=== PATIENT | male | born 1985 | race Caucasian/White ===

== ENCOUNTER 2016-04-03 15:32 | Observation (INO) ==
--- NOTE | 2016-04-03 16:06 | EKG Report ---
Stationary ECG Study [facility] ER Test Date: 04/03/2016 3:51:55 PM Pat Name: ELMER PATRICIA Department: Room: Gender: M Mate Relief: Luh : 1985 Requested by: Michelle Terrell Order Number: [id number] Reading MD: BG HERRERA Intervals [place] Rate: 101 P: 46 IN: 129 QRS: 71 QRSD: 90 T: 69 QT: 329 QTc: 387 Interpretive Statements SINUS TACHYCARDIA ABNORMAL RHYTHM ECG Electronically Signed On 04-03-16 23:12:51 MANAGER FLEET by BG HERRERA [email or web address]
[2016-04-03] MEDS ORDERED: NITROGLYCERIN SL 0.4 MG TABLET SL PRN (18:20)
[2016-04-03] MEDS ORDERED: ASPIRIN 325 MG TABLET PO STA (18:20)
[2016-04-03] MEDS ORDERED: ONDANSETRON 4 MG/2 ML VIAL IV STA (18:20)
[2016-04-03] MEDS ORDERED: SODIUM CHLORIDE 0.9% 1,000 ML IV STA (18:20)
[2016-04-03] MEDS ORDERED: MORPHINE 2 MG/1 ML SYRINGE IV STA (18:20)
[2016-04-03] MEDS ORDERED: ONDANSETRON 4 MG/2 ML VIAL ONE (18:26)
[2016-04-03] MEDS ORDERED: MORPHINE 2 MG/1 ML SYRINGE ONE (18:26)
[2016-04-03] MEDS ORDERED: ASPIRIN 325 MG TABLET ONE (18:26)
[2016-04-03 18:27] LABS: Basophils # 0.1 10*3/uL (0.0-0.2); Basophils % 0.7 % (0.0-0.8); Eosinophils # 0.6 10*3/uL (0.0-0.87); Eosinophils % 4.2 % (0.00-10.9); Hematocrit 43.2 VOL% (42.0-52.0); Hemoglobin 14.5 GM/DL (14.0-18.0); Immature Granulocytes % 0.4 %; Immature Granulocytes Absolute 0.06 #; Lymphocytes # 4.9 10*3/uL (1.4-4.0); Lymphocytes % 34.8 % (21.2-54.2); Mean Corpuscular HGB Conc 33.6 GM/DL (32-36); Mean Corpuscular Hemoglobin 31 PG (27-34); Mean Corpuscular Volume 91.1 FL (87-102); Mean Platelet Volume 9.1 FL (9.6-12.0); Monocytes % 7.1 % (1.7-12.7); Neutrophils # 7.4 10*3/uL (1.4-7.4); Neutrophils % 52.8 % (38.7-73.9); Platelet Count 260 T/CUMM (130-400); Red Blood Count 4.74 MC/CUMM (3.8-5.5); Red Cell Distribution Width 12.6 % (9.3-17.3)
--- NOTE | 2016-04-03 18:27 | Emergency Department Note ---
Arrival - Arrival Chief Complaint: Chest Pain Stated Complaint: Chest pains ED Nursing Triage Note: Pt states that he is having midsternal chest pain onset x 2 days - pt states that he was seen and treated in ER for same c/o yesterday and pt states that he refused admit - pt states that he has 6 stents - stents were sep 2014 -pt states that he sees Dr Ramirez Mode of Arrival: Ambulatory Limitations: No Limitations Source: Patient Time Seen by Provider: 04/03/16 17:49 - History of Present Illness HPI Narrative: The patient complains of constant chest tightness with intermittent brief episodes of sharp chest pain for the past 2 days. He has had some brief episodes of sharp pain in his left axilla but otherwise no radiation. He has had some nausea but no vomiting. He has had diaphoresis and shortness of breath. He notes no exacerbating or relieving factors. He states the pain feels similar to pain he had just before his VT in 2014. He has had a recent toothache but no fever, chills, cough, rhinorrhea or other recent illness. He has a history of hypertension and VT with 6 stents done in 2014. He has not been taking any of his medications. He cannot cath done in 2015 which showed only a 30% proximal circumflex stenosis. Everything else was widely patent. Ejection fraction was 40-45%. The patient was seen here yesterday and admitted by Dr. Dowd, however, he quickly left AMA. Allergies/Adverse Reactions: Allergies Allergy/AdvReac Type Severity Reaction Status Date / Time No Known Allergies Allergy Verified 06/09/15 11:07 Home Medications: Home Medications Medication Instructions Recorded Confirmed Type Acetaminophen Tab [Tylenol Tab] 325 mg PO Q4H PRN #60 tablet 04/02/16 04/03/16 Rx Alum/Mag/Simeth Max Str Liquid 30 ml PO Q4H PRN #1 bottle 04/02/16 04/03/16 Rx [Mylanta Max Strength Liquid] Aspirin EC Tab 81 mg PO DAILY #30 tablet 04/02/16 04/03/16 Rx Atorvastatin [Lipitor] 40 mg PO DAILY #30 tablet 04/02/16 04/03/16 Rx Carvedilol [Coreg] 6.25 mg PO BID W/MEALS #60 tablet 04/02/16 04/03/16 Rx Lisinopril [Prinivil] 5 mg PO DAILY #30 tablet 04/02/16 04/03/16 Rx Nitroglycerin Sl Tab [Nitrostat] 0.4 mg SL Q5M PRN #60 tablet 04/02/16 04/03/16 Rx Pantoprazole Tab [Protonix Tab] 40 mg PO DAILY #30 tablet 04/02/16 04/03/16 Rx Ticagrelor [Brilinta] 90 mg PO BID #60 tablet 04/02/16 04/03/16 Rx Review of System - Review of System 12 point system: reviewed and no additional remarkable complaints except as stated - Review of System Constitutional: Present: diaphoresis. Absent: chills, fever Head/Ears/Nose/Throat: Absent: nasal drainage, sore throat Respiratory: Absent: cough, respiratory distress, wheezing Cardiovascular: Present: chest pain. Absent: palpitations, dyspnea on exertion Gastrointestinal: Present: nausea. Absent: abdominal pain, vomiting Musculoskeletal: Absent: back pain, neck pain Medical,Surgical,& Family Hx - Medical History Cardio: History of: Cardiac Dysrhythmia (runs of VTACT this admission), CAD, Hypertension, [place] No history of: Aneurysm, Cerebrovascular Disease, Congenital Heart Disease, CHF, Pacemaker, PVD, Valvular Heart Disease, Cardiovascular Problems Psychological: No history of: Anxiety Disorders, ADHD, Behavior Problems, Bipolar Disorder, Depression, Previous Suicide Attempt, Psychiatric/Substance Abuse Tx, Schizophrenia, Violent Behavior, Psychiatric Problems Neurology: No history of: Brain Aneurysm, Cerebral Hemorrhage, Cerebrovascular Accident , Cerebral Palsy, Dementia, Migraine, Multiple Sclerosis, Parkinson's Disease, Peripheral Neuropathy, Seizures, TIA, Vertigo, Neurologocal Cancer HEENT: History of: HEENT Problems (tubes placed in ears as a child) No history of: Ear Problem, Eye Problem, Dental Problems, Glaucoma, Oral Cancer Endocrine: No history of: Adrenal Disease, Diabetes Mellitus (IDDM), Diabetes Mellitus ( NIDDM), Dyslipidemia, Thyroid Disorder, Endocrine Cancer, Endocrine Problems Rheumatology: No history of;: Fibromyalgia, Gout, Myasthenia Gravis, Psoriasis, Rheumatoid Arthritis, Sjogrens, Systemic Lupus Erythematosus, Rheumatological Problems Respiratory: History of: Obstructive Sleep Apnea, Respiratory Problems No history of: Asthma, Bronchitis, COPD, Intubation, Pulmonary Embolism, Pulmonary Hypertension, Pneumonia, Lung Cancer Renal: History of: Renal Problems (Congenital kidney disease (only has one kidney)) No history of: Renal (Kidney) Cancer, Dialysis, Renal Failure Genitourinary: No history of: Bladder Problem, Kidney Stones, Prostate Problems, Recurring Urinary Tract Infections, Genitourinary Cancer, Problems Gastrointestinal: History of: GERD No history of: Bowel Obstruction, Clostridium Difficile, Crohn's Disease, Diverticulitis/ Diverticulosis, Esophageal Varices, Gastrointestinal Bleed, Hemorrhoids, Hematochezia, Hepatitis, Liver Problems, Pancreatitis, Polyps, Ulcerative Colitis, Gastrointestinal Cancer, GI Problems Musculoskeletal: No history of: Amputation, Back/Neck Problems, Degenerative Disk Disease, Herniated Disk, Osteoporosis, Musculoskeletal Cancer, Musculoskeletal Problems Hematology: History of: Bleeding Problems (HEMATOMA POST CATH 09/19) No history of: Anemia, Blood Transfusion Reaction, Clotting Problems, Sickle Cell Disease, Hematologic Cancer, Blood Disorders Reproductive: No histroy: Penile Disorder, Sexually Transmitted Disease, Reproductive Cancer, Reproductive Problems Other: No history of: Anesthesia Reactions, Anaphylaxis, Cancer, Eczema, HIV, Malignant Hyperthermia, MRSA, Vancomycin-Resistant Enterococci, Skin Problems, Miscellaneous Medical Problems - Surgical History Cardiac Surgeries: Sugical HX of: Cardiac Catheterization ([address] RAMIREZ ON 09/10/14) Patient Denies: Femoral-Popliteal Bypass Graft, Cardiac Surgery, Carotid Endarterectomy, Internal Defibrillator, Vascular Access Devices Thoracic Surgeries: Patient denies;: Kidney (Renal Surgery), Lithotripsy, Nephrectomy, Organ Transplant, Lobectomy Neurologic Surgeries: Patient denies: Brain Aneurysm, Cerebral Hemorrhage, Neurologic Surgery HEENT Surgeries: Patient denies: Carotid Endarterectomy, Eye Surgery, Thyroid Surgery, Tonsilectomy & Adenoidectomy Abdominal Surgeries: Surgical HX of: Hernia Repair (as a child) Patient denies: Abdominal Surgery, Appendectomy, Cholecystectomy, Colonoscopy , Gastric Bypass Surgery, EGD, Splenectomy Reproductive Surgeries: Patient denies;: Breast Surgery, Cystoscopy, Genitourinary Surgery, Prostate Surgery, Vasectomy Orthopedic Surgeries: Patient denies;: Implanted Devices, Orthopedic Surgery, Spinal Surgery, Total Hip Replacement, Total Knee Replacement - Family History Family History: Reports;: Family Cancer (grandfather and great grandfather), Family Diabetes (Dad), Family Heart Disease (grandmother-CHF grandfather heart transplant and CHF), Family Hypertension (dad), Family Stroke (dad -TIA) Denies;: Family Anesthesia Reaction - Social History Smoking Status: Smoker, status unknown Frequency of Alcohol Use: None Type of Drug Use: None Exam Physical Examination: GENERAL: Alert. No acute distress. HEENT: Normocephalic and atraumatic. There is no nasal drainage. No pharyngeal erythema or exudate. NECK: Normal inspection. Supple. No lymphadenopathy or meningismus. LUNGS: No respiratory distress. Clear to auscultation bilaterally, no wheezes, rales or rhonchi. HEART: Regular rate and rhythm. ABDOMEN: Soft, nontender and nondistended with normoactive bowel sounds. BACK: Normal inspection. SKIN: Color normal. Warm and dry. EXTREMITIES: Nontender. Normal range of motion. No pedal edema. NEUROLOGICAL/PSYCHIATRIC: Alert and oriented 3 with normal mood and affect. Cranial nerves normal. No motor or sensory deficit. Vital Signs: Vital Signs Temperature 99.6 F 04/03/16 16:47 Pulse Rate 100 H 04/03/16 16:47 Respiratory Rate 20 04/03/16 16:47 Blood Pressure 144/92 04/03/16 16:47 O2 Sat by Pulse Oximetry 97 04/03/16 16:47 Course - Reevaluation(s) Reevaluation #1: Patient reports very little pain relief with nitroglycerin, morphine and aspirin. I have discussed the patient with Dr. Osuna and will admit tonight. He has now had 2 sets of enzymes which were negative. EKG shows no changes. Chest x-ray is unremarkable. Time: 20:02 Results - Labs CBC & BMP: 04/03/16 18:15 04/03/16 18:15 Lab Results: I have reviewed the patients labs Labs: Laboratory Tests 04/02/16 04/03/16 04/03/16 12:53 18:15 18:15 INR 0.9 Magnesium 2.0 Troponin I < 0.015 04/03/16 18:15 INR Magnesium Troponin I < 0.015 - EKG EKG results: interpreted by ERMD - Impressions EKG shows a sinus rhythm with Q waves in II, III, and F. No acute changes. Chest x-ray shows no acute cardiopulmonary abnormality. Disposition Clinical Impression: Chest pain Case discussed with: patient, patient's family Disposition: Still a Patient Time of Disposition: 20:06
[2016-04-03 18:39] LABS: INR 0.9; PT Patient Result 9.5 SECS; Partial Thromboplastin Time 25.4 SECS (0-40)
[2016-04-03 18:56] LABS: Alanine Aminotransferase 50 U/L (16-61); Albumin 3.3 G/DL (3.4-5.0); Alkaline Phosphatase 74 U/L (45-117); Aspartate Amino Transferase 29 U/L (0-37); Bilirubin,Total < 0.39 MG/DL (0.2-1.0); Calcium 8.8 MG/DL (8.5-10.1); Total Protein 6.3 G/DL (6.4-8.3)
[2016-04-03 18:57] LABS: Blood Urea Nitrogen 14 MG/DL (7-18); Glucose 103 MG/DL (74-106); Potassium 4.3 MMOL/L (3.5-5.1); Sodium 143 MMOL/L (136-145)
--- NOTE | 2016-04-03 19:04 | XRay Report ---
Referring Physician: Brando Perez Exam: XR chest 1V portable Date: April 03, 2016 at 6:19 PM Reason: Chest pain Comparison: Chest one view portable April 02, 2016 Findings: The cardiac silhouette is normal in size for the portable technique. No focal consolidation, pneumothorax or pleural effusion is identified. No acute osseous process is seen. Impression: No acute cardiopulmonary process is identified. PROCEDURE INTERPRETED AT [facility] DEPARTMENT OF RADIOLOGY Final Report Signed by: Dr. Jhonatan Guevara
--- NOTE | 2016-04-03 22:09 | EKG Report ---
Stationary ECG Study [facility] ER Test Date: 04/03/2016 10:07:30 PM Pat Name: ELMER PATRICIA Department: Room: Gender: M Structural Fitter: BLAIRE Duncan : 1985 Requested by: Brando Brannon Order Number: [id number] Hortencia MD: BG EHRRERA Intervals [place] Rate: 81 P: 63 LA: 132 QRS: 78 QRSD: 95 T: 82 QT: 370 QTc: 407 Interpretive Statements SINUS RHYTHM MINOR NON-SPECIFIC ST-T ABNORMALITIES Electronically Signed On 04-03-16 23:14:05 DOCTOR OF NATUROPATHIC MEDICINE by BG HERRERA [id number]
[2016-04-03] MEDS ORDERED: ALUMINUM/MAGNES/SIMETH MAX STR 30 ML UDCUP PO PRN (22:26)
[2016-04-03] MEDS ORDERED: MAGNESIUM SULF RIDER 2 GM in PREMIX 1 EACH IV PRN (22:26)
[2016-04-03] MEDS ORDERED: NITROGLYCERIN 2% OINT 1 INCH/GM PACK TOP STA (22:26)
[2016-04-03] MEDS ORDERED: MAGNESIUM SULF RIDER 4 GM in PREMIX 1 EACH IV PRN (22:26)
[2016-04-03] MEDS ORDERED: NITROGLYCERIN 2% OINT 1 INCH/GM PACK TOP ONE (22:29)
[2016-04-03] MEDS: TICAGRELOR 90 MG TABLET PO SCH (22:33)
--- NOTE | 2016-04-04 07:44 | EKG Report ---
Stationary ECG Study [facility] ER Test Date: 04/04/2016 1:00:44 AM Pat Name: ELMER PATRICIA Department: Room: Gender: M Drum Tester: ALLAN : 1985 Requested by: Brando Brannon Order Number: [id number] Reading MD: ANTELMO YAN Intervals [place] Rate: 82 P: 34 RI: 153 QRS: 67 QRSD: 88 T: 72 QT: 361 QTc: 400 Interpretive Statements SINUS RHYTHM Electronically Signed On 04-04-16 12:58:08 BUSINESS PROCESS MODELER by ANTELMO YAN [id number]
[2016-04-04] MEDS: CARVEDILOL 6.25 MG TABLET PO SCH ×2 (08:24→17:18)
[2016-04-04] MEDS ORDERED: PANTOPRAZOLE 40 MG TABLET PO SCH (09:00)
[2016-04-04] MEDS: TICAGRELOR 90 MG TABLET PO SCH (09:36)
[2016-04-04] MEDS: ATORVASTATIN 40 MG TABLET PO SCH (09:36)
[2016-04-04] MEDS: LISINOPRIL 5 MG TABLET PO SCH (09:36)
[2016-04-04] MEDS: ASPIRIN EC 81 MG TABLET PO SCH (09:36)
[2016-04-04] MEDS: PANTOPRAZOLE 40 MG TABLET PO SCH (09:37)
[2016-04-04] MEDS ORDERED: MAGNESIUM SULF RIDER 2 GM in PREMIX 1 EACH IV PRN (15:26)
[2016-04-04] MEDS ORDERED: diphenhydrAMINE CAP 25 MG CAPSULE PO ONE (15:26)
[2016-04-04] MEDS ORDERED: DIAZEPAM 5 MG TABLET PO ONE (15:26)
[2016-04-04] MEDS ORDERED: POTASSIUM CHLORIDE RIDER 10 MEQ in PREMIX 1 EACH IV PRN (15:26)
[2016-04-04] MEDS ORDERED: NITROGLYCERIN SL 0.4 MG TABLET SL PRN (15:33)
[2016-04-04] MEDS: MORPHINE 2 MG/1 ML SYRINGE IV PRN (15:51)
[2016-04-04] MEDS ORDERED: ENOXAPARIN 60 MG/0.6 ML SYRINGE SUBCUT ONE (15:58)
--- NOTE | 2016-04-04 16:00 | Cardiology History & Physical ---
I, Valorie Lopez RN, am scribing for, and in the presence of, Harlan Osuna MD 16:00. Assessment and Plan (1) Chest pain Status: Acute Assessment and plan: This is concerning for possible worsening of underlying coronary artery disease. I have discussed risk and benefits of left heart catheterization with the patient. He agrees to proceed with this tomorrow morning. He does not have any known allergies. We will keep him n.p.o. after midnight. I have discussed in detail the particulars of this case and I have examined the patient and reviewed the patient's chart both current and old. I was directly involved in the patient's evaluation and management and I completely agree with Valorie Lopez regarding this patient's evaluation and treatment plan. Current Visit: Yes (2) Dyslipidemia Status: Chronic Assessment and plan: We will check lipid panel. Current Visit: Yes (3) CAD (coronary artery disease) Status: Chronic Assessment and plan: Patient is status post NSTEMI September 2014 with LAD stent x 6. Current Visit: No (4) Noncompliance Status: Acute Assessment and plan: Counseled patient on the importance of medication compliance. Current Visit: No (5) Hypertension Status: Chronic Assessment and plan: This is currently well controlled. Home medications have been restarted. Current Visit: No (6) Obesity Status: Chronic Assessment and plan: Counseled patient on the importance of weight loss. Current Visit: No (7) Obstructive sleep apnea Status: Chronic Assessment and plan: Continue current plan of care with CPAP machine. Current Visit: No (8) tobacco abuse Status: Chronic Assessment and plan: Counseled patient on the importance of smoking cessation. Current Visit: No History of Present Illness Chief complaint: Chest pain History of present illness: Mr. Wall is a 30 year old male with known coronary artery disease, routinely followed by Dr. Ramirez. Presented to the ER for further evaluation of chest pain. He has risk factors significant for known coronary artery disease, hypertension, dyslipidemia, obesity, current everyday smoker (one half a pack a day) and family history of premature heart disease. He has a history of LAD myocardial infarction, obstructive sleep apnea and ischemic cardiomyopathy ( with improved ejection fraction with no CHF symptoms). Patient has had 2 cardiac catheterizations. Patient is status post NSTEMI September 2014 with LAD stent x 6. He had recurrent chest pain June 2015 and underwent left heart cath. At that time his LAD stents were widely patent. The dominant circumflex and right coronary artery were also patent. Ejection fraction was noted to be 40-45 %. Patient was in his usual state of health until Sunday when he began to experience intermittent moderate chest pain. He describes his pain as heaviness that radiates to his left arm. This was also associated with shortness of breath, nausea, palpitations and lightheadedness. He tells me that his chest pain usually last approximately 30 seconds to 1 minute. He is unable to identify any alleviating factors. He does tell me that activity worsens his chest pain. He reports that this chest pain feels very similar to his angina prior to his myocardial infarction in September 2014. His chest pain increasingly got worse over the weekend and he presented to the ER on Sunday. He was going to be admitted under Dr. Dowd's service at that time. However, he did not want to be admitted and decided to leave A. Patient returned to the ER with recurrent chest pain Sunday. He has been admitted to cardiology's service and housed on the telemetry floor for close observation. Of note, patient reports a worsening dyspnea on exertion. He tells me that he has noticed this over the past several months while at work. He denies fever, chills, cough, abdominal pain, melena, orthopnea, PND and lower extremity edema. He also reports that he has been noncompliant with his medications and has not taken them in several months. Patient was seen and examined on telemetry. He is currently chest pain-free. His troponin has been negative 3 checks. His EKG does not reveal any acute findings and is unchanged from previous EKG. We will continue to monitor troponins and EKGs. Patient is currently in sinus rhythm with heart rates in the 70s without any overt arrhythmias or ectopy noted. Will monitor closely on telemetry. This is concerning for worsening the patient's underlying coronary artery disease. I have discussed risk and benefits of left heart catheterization with the patient. He agrees to proceed with this tomorrow morning. He does not have any known allergies. We will keep him n.p.o. after midnight. Home Medications Medication Instructions Recorded Confirmed Type Acetaminophen Tab [Tylenol Tab] 325 mg PO Q4H PRN #60 tablet 04/02/16 04/03/16 Rx Alum/Mag/Simeth Max Str Liquid 30 ml PO Q4H PRN #1 bottle 04/02/16 04/03/16 Rx [Mylanta Max Strength Liquid] Aspirin EC Tab 81 mg PO DAILY #30 tablet 04/02/16 04/04/16 Rx Atorvastatin [Lipitor] 40 mg PO DAILY #30 tablet 04/02/16 04/04/16 Rx Carvedilol [Coreg] 6.25 mg PO BID W/MEALS #60 tablet 04/02/16 04/04/16 Rx Lisinopril [Prinivil] 5 mg PO DAILY #30 tablet 04/02/16 04/04/16 Rx Nitroglycerin Sl Tab [Nitrostat] 0.4 mg SL Q5M PRN #60 tablet 04/02/16 04/04/16 Rx Pantoprazole Tab [Protonix Tab] 40 mg PO DAILY #30 tablet 04/02/16 04/04/16 Rx Ticagrelor [Brilinta] 90 mg PO BID #60 tablet 04/02/16 04/04/16 Rx Allergies Allergy/AdvReac Type Severity Reaction Status Date / Time No Known Allergies Allergy Verified 06/09/15 11:07 - Constitutional Constitutional: Absent: chills, excessive sweating, fatigue, fever(s), frequent falls, headache(s) - Cardiovascular Cardiovascular: Present: as per HPI, dyspnea, dyspnea on exertion, radiating jaw , neck or arm pain, lightheadedness, palpitations. Absent: claudication, diaphoresis, edema, orthopnea, PND - Respiratory Respiratory: Present: dyspnea, dyspnea on exertion. Absent: cough, hemoptysis, wheezing, snoring, pain on inspiration, change in phlegm color - Gastrointestinal Gastrointestinal: Present: nausea. Absent: abdominal pain, coffee ground emesis , diarrhea, heartburn, hematemesis, hematochezia, loose stools, melena, vomiting - Neurological Neurological: Absent: abnormal gait, abnormal speech, confusion, frequent falls , syncope - Hematologic/Lymphatic Hematologic/Lymphatic: Absent: easy bleeding, easy bruising, lymphadenopathy Medical,Surgical,& Family Hx - Medical History Cardio: History of: CAD, Hypertension, [place] No history of: Aneurysm, Cerebrovascular Disease, Congenital Heart Disease, CHF, Pacemaker, PVD, Valvular Heart Disease, Cardiovascular Problems Psychological: No history of: Anxiety Disorders, ADHD, Behavior Problems, Bipolar Disorder, Depression, Previous Suicide Attempt, Psychiatric/Substance Abuse Tx, Schizophrenia, Violent Behavior, Psychiatric Problems Neurology: No history of: Brain Aneurysm, Cerebral Hemorrhage, Cerebrovascular Accident , Cerebral Palsy, Dementia, Migraine, Multiple Sclerosis, Parkinson's Disease, Peripheral Neuropathy, Seizures, TIA, Vertigo, Neurologocal Cancer HEENT: History of: HEENT Problems (tubes placed in ears as a child) No history of: Ear Problem, Eye Problem, Dental Problems, Glaucoma, Oral Cancer Endocrine: No history of: Adrenal Disease, Diabetes Mellitus (IDDM), Diabetes Mellitus ( NIDDM), Dyslipidemia, Thyroid Disorder, Endocrine Cancer, Endocrine Problems Rheumatology: No history of;: Fibromyalgia, Gout, Myasthenia Gravis, Psoriasis, Rheumatoid Arthritis, Sjogrens, Systemic Lupus Erythematosus, Rheumatological Problems Respiratory: History of: Obstructive Sleep Apnea No history of: Asthma, Bronchitis, COPD, Intubation, Pulmonary Embolism, Pulmonary Hypertension, Pneumonia, Lung Cancer Renal: History of: Renal Problems (Congenital kidney disease (only has one kidney)) No history of: Renal (Kidney) Cancer, Dialysis, Renal Failure Genitourinary: No history of: Bladder Problem, Kidney Stones, Prostate Problems, Recurring Urinary Tract Infections, Genitourinary Cancer, Problems Gastrointestinal: History of: GERD No history of: Bowel Obstruction, Clostridium Difficile, Crohn's Disease, Diverticulitis/ Diverticulosis, Esophageal Varices, Gastrointestinal Bleed, Hemorrhoids, Hematochezia, Hepatitis, Liver Problems, Pancreatitis, Polyps, Ulcerative Colitis, Gastrointestinal Cancer, GI Problems Musculoskeletal: No history of: Amputation, Back/Neck Problems, Degenerative Disk Disease, Herniated Disk, Osteoporosis, Musculoskeletal Cancer, Musculoskeletal Problems Hematology: History of: Bleeding Problems (HEMATOMA POST CATH 09/19) No history of: Anemia, Blood Transfusion Reaction, Clotting Problems, Sickle Cell Disease, Hematologic Cancer, Blood Disorders Reproductive: No histroy: Penile Disorder, Sexually Transmitted Disease, Reproductive Cancer, Reproductive Problems Other: No history of: Anesthesia Reactions, Anaphylaxis, Cancer, Eczema, HIV, Malignant Hyperthermia, MRSA, Vancomycin-Resistant Enterococci, Skin Problems, Miscellaneous Medical Problems - Surgical History Cardiac Surgeries: Sugical HX of: Cardiac Catheterization ([address] RAMIREZ ON 09/10/14) Patient Denies: Femoral-Popliteal Bypass Graft, Cardiac Surgery, Carotid Endarterectomy, Internal Defibrillator, Vascular Access Devices Thoracic Surgeries: Patient denies;: Kidney (Renal Surgery), Lithotripsy, Nephrectomy, Organ Transplant, Lobectomy Neurologic Surgeries: Patient denies: Brain Aneurysm, Cerebral Hemorrhage, Neurologic Surgery HEENT Surgeries: Patient denies: Carotid Endarterectomy, Eye Surgery, Thyroid Surgery, Tonsilectomy & Adenoidectomy Abdominal Surgeries: Surgical HX of: Hernia Repair (as a child) Patient denies: Abdominal Surgery, Appendectomy, Cholecystectomy, Colonoscopy , Gastric Bypass Surgery, EGD, Splenectomy Reproductive Surgeries: Patient denies;: Breast Surgery, Cystoscopy, Genitourinary Surgery, Prostate Surgery, Vasectomy Orthopedic Surgeries: Patient denies;: Implanted Devices, Orthopedic Surgery, Spinal Surgery, Total Hip Replacement, Total Knee Replacement - Family History Family History: Reports;: Family Cancer (grandfather and great grandfather), Family Diabetes (Dad), Family Heart Disease (Dad myocardial infarction at age 54 ), Family Hypertension (dad), Family Stroke (dad -TIA) Denies;: Family Anesthesia Reaction - Social History Smoking Status: Current every day smoker Frequency of Alcohol Use: None Type of Drug Use: None Cardiology Physical Exam - Constitutional Vitals: Vital Signs Temp Pulse Resp BP Pulse Ox 97.3 F L 80 18 109/68 97 04/04/16 14:27 04/04/16 14:27 04/04/16 14:27 04/04/16 14:27 04/04/16 14:27 Intake and Output 04/03/16 04/04/16 04/04/16 22:59 06:59 14:59 Other: Weight 283 lb Patient Weight 04/05/16 06:59 Weight 283 lb General appearance: no acute distress, over weight - Head Head exam: Present: normal inspection, normocephalic, atraumatic - Eye Pupils: Present: ALDAIR. Absent: dilated, fixed, irregular, unequal - Neck Neck exam: Present: normal inspection. Absent: lymphadenopathy, tenderness, thyromegaly - Respiratory Respiratory exam: Present: clear to auscultation bilaterally. Absent: accessory muscle use, chest wall tenderness, rales, rhonchi, stridor, wheezes - Cardiovascular Cardiovascular exam: Present: regular rate and rhythm. Absent: bradycardia, gallop, rubs, systolic murmur, tachycardia - GI/Abdominal GI/Abdominal exam: Present: normal bowel sounds, soft. Absent: distended, firm , mass, tenderness - Extremities Exam Extremities exam: Present: normal inspection, normal capillary refill, other ( Normal bilateral lower extremity pulses). Absent: calf tenderness, edema - Neurological Exam Neurological exam: Present: alert, oriented X3, normal gait - Psychiatric Psychiatric exam: Present: normal affect, normal mood. Absent: agitated, anxious, depressed - Skin Skin exam: Present: normal color, warm, dry. Absent: cyanosis Result/EKG - Labs CBC & BMP: 04/03/16 18:15 04/03/16 18:15 Lab Results: I have reviewed the past 24 hour labs - EKG EKG results: interpreted by me, sinus rhythm I, Harlan Osuna MD, personally performed the services described in this documentation, ascribed by Valorie Lopez RN in my presence, and it is both accurate and complete [id number] .
[2016-04-04 16:46] LABS: Barbiturates Screen,Urine Negative (Negative); Benzodiazepines Screen,Urine Negative (Negative); Cannabinoid Screen,Urine Negative (Negative); Opiate Screen,Urine Negative (Negative); Phencyclidine Screen,Urine Negative (Negative)
--- NOTE | 2016-04-04 17:06 | Event Note ---
I saw Mr. Wall. I discussed with him he says he had pain or pressure in his chest just like he did before he received [address] Ramirez. He also recently had a stent placed by Dr. Shepard in the LAD for ISR. I have reviewed his films I discussed with him risk benefits and options he is willing to proceed I called to schedule him for left heart cath first possible case on . He voiced understanding is willing to proceed
[2016-04-05] MEDS: ACETAMINOPHEN 325 MG TABLET PO PRN ×2 (01:22→13:37)
[2016-04-05] MEDS ORDERED: diphenhydrAMINE CAP 25 MG CAPSULE ONE (04:43)
[2016-04-05] MEDS ORDERED: DIAZEPAM 5 MG TABLET ONE (04:43)
[2016-04-05 04:54] LABS: Basophils # 0.1 10*3/uL (0.0-0.2); Basophils % 0.8 % (0.0-0.8); Eosinophils # 0.6 10*3/uL (0.0-0.87); Hematocrit 43.2 VOL% (42.0-52.0); Hemoglobin 14.5 GM/DL (14.0-18.0); Immature Granulocytes % 0.2 %; Immature Granulocytes Absolute 0.02 #; Lymphocytes # 3.9 10*3/uL (1.4-4.0); Mean Corpuscular HGB Conc 33.6 GM/DL (32-36); Mean Corpuscular Hemoglobin 31 PG (27-34); Mean Corpuscular Volume 91.3 FL (87-102); Mean Platelet Volume 9.9 FL (9.6-12.0); Monocytes # 0.7 10*3/uL (0.11-0.8); Monocytes % 7.7 % (1.7-12.7); Neutrophils # 3.4 10*3/uL (1.4-7.4); Neutrophils % 39.3 % (38.7-73.9); Platelet Count 191 T/CUMM (130-400); Red Blood Count 4.73 MC/CUMM (3.8-5.5); Red Cell Distribution Width 12.6 % (9.3-17.3); White Blood Count 8.7 T/CUMM (4-12)
[2016-04-05 05:04] LABS: INR 0.9; PT Patient Result 9.4 SECS
[2016-04-05 05:20] LABS: Hypochromasia 1+; Platelet Estimate Normal
[2016-04-05] MEDS ORDERED: TICAGRELOR 90 MG TABLET PO ONE (06:02)
[2016-04-05 06:03] LABS: Calcium 8.4 MG/DL (8.5-10.1); Magnesium 2.1 MG/DL (1.8-2.4)
--- NOTE | 2016-04-05 06:03 | History and Physical Update ---
Sedation H&P Update - History and Physical H&P was reviewed, the patient examined and there: are no changes in the patients condition since last H&P was completed. - Dictation Physical: refer to H&P completed by admitting physician - Physical Exam Mental Status: alert and oriented Heart: regular rate and rhythm Lung: clear to auscultation Abdomen: within normal limits Vitals: within normal limits - Sedation Plan for Sedation: moderate Patient Consent: Procedure disscussed with patient and patinet has consented., Risks and benefits were discussed with patient,including infection,, bleeding, injury to surrounding structures, seizure, temporary nerve, Patient understands and accepts potential risks/benefits and agrees to, proceed. ASA Class: III Airway Assessment: Class IV: Only hard palate visible
[2016-04-05 06:04] LABS: Osmolality,Calculated 284.8 MOS/KG (273-304); Potassium 4.6 MMOL/L (3.5-5.1)
[2016-04-05 06:13] LABS: Risk Ratio 5.71; VLDL CHOLESTEROL 72.6 MG/DL
--- NOTE | 2016-04-05 07:27 | EKG Report ---
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
[2016-04-05] MEDS: ATORVASTATIN 40 MG TABLET PO SCH (09:13)
[2016-04-05] MEDS: ASPIRIN EC 81 MG TABLET PO SCH (09:13)
[2016-04-05] MEDS: CARVEDILOL 6.25 MG TABLET PO SCH ×2 (09:13→17:19)
[2016-04-05] MEDS: LISINOPRIL 5 MG TABLET PO SCH (09:14)
[2016-04-05] MEDS: PANTOPRAZOLE 40 MG TABLET PO SCH (09:14)
[2016-04-05] MEDS ORDERED: LIDOCAINE 1% 20 ML VIAL ONE (10:08)
[2016-04-05] MEDS ORDERED: HEPARIN/NACL 0.9% 2 UNITS/ML 1,000 ML IV ONE (10:08)
[2016-04-05] MEDS ORDERED: MIDAZOLAM 2 MG/2 ML VIAL ONE ×3 (10:14→10:44)
[2016-04-05] MEDS ORDERED: fentaNYL 100 MCG/2 ML VIAL ONE (10:15)
[2016-04-05] MEDS ORDERED: VERAPAMIL 5 MG/2 ML VIAL ONE (10:17)
[2016-04-05] MEDS ORDERED: NITROGLYCERIN DRIP 50 MG/250 ML BOTTLE IV ONE (10:17)
[2016-04-05] MEDS ORDERED: diphenhydrAMINE 50 MG/1 ML VIAL ONE (10:19)
[2016-04-05] MEDS ORDERED: ENOXAPARIN 60 MG/0.6 ML SYRINGE ONE (10:26)
[2016-04-05] MEDS ORDERED: HEPARIN/NACL 0.9% 2 UNITS/ML 500 ML IV ONE (10:45)
[2016-04-05] MEDS ORDERED: ADENOSINE 90 MG/30 ML VIAL IV ONE (11:01)
--- NOTE | 2016-04-05 11:37 | Cardiac Catheterization ---
Date of Procedure:: 04/05/16 Pre-op Diagnosis: Chest pain and known coronary artery disease Post-op diagnosis: same Procedure: Procedures: 1. Selective left and right coronary angiography 2. Left heart catheterization resting hemodynamics 3. Right femoral iliac angiography 4. Closure right femoral arteriotomy with Angio-Seal closure device After signed an informed consent was obtained, the patient was prepped and draped in standard fashion for right radial access. Time out was recorded. 0.5 mL of 1% lidocaine were infiltrated in the skin and subcutaneous tissue overlying the right radial artery and Seldinger technique was utilized with a Angiocath to obtain access to the right radial artery. A Terumo glide wire was then advanced into the midforearm under fluoroscopic guidance. The Angiocath was removed and a 6 Mexican Terumo glide sheath was placed over the Glidewire. The sheath was aspirated and flushed and then 5 mg of verapamil and 200 g of nitroglycerin were given through the sheath. At this time an 035 J-wire was used to guide a Accord 6 Mexican catheter into the central aorta across the aortic valve and into the ventricle. Pressure measurements and pullback measurements were obtained. The catheter was then used to engage the right coronary artery and a single polyp was taken was a nondominant vessel. The cath was then disengaged. The Accord catheter was then used and attempts to to engage the left main coronary artery and were unsuccessful. The cath was then exchanged over the wire for an AL-1 diagnostic catheter again the vessel could not be adequately engaged. A puff was taken once in the right coronary artery and there was filling of the space outside of the coronary artery. This contrast remained for some time and then resolve spontaneously the patient had no discomfort and remained hemodynamically stable. At subsequent fluoroscopic images is contrasted dissipated. The catheter then was attempted to be exchanged over the wire for a JL 4.5 but the artery had spasm in the mid brachial area and would not advance. The catheter and wire removed the sheath was aspirated and flushed. Attention was turned to femoral artery access. Modified Seldinger technique was utilized and accessed to the right femoral artery and a 3 5 J-wire was advanced in the central aorta small skin incision was made a 6 Mexican sheath placed over the wire. At this time the previous we attempted JL 4.5 diagnostic catheter was used to engage the left main coronary artery how selectively into the circumflex. The cath was exchanged over the wire the sheath was aspirated and flushed and a AL-1 diagnostic cath was then used to engage the left main coronary artery and torqued for visualization of the previously deployed stents in the LAD multiple orthogonal views were obtained. Stents were widely patent there was a very tight appearing ostial first diagonal. The decision was made at this time to perform fractional flow reserve assessment of this lesion. The room was set up for FFR. The AL-1 was exchanged over the wire the sheath was aspirated and flushed attempts to advance a 4.0 EBU and a 4.5 EBU catheter were unsuccessful due to calling in the aortic root. The decision was made at this time to stop the procedure. The catheter was exchanged over the wire both sheaths were flushed. A right femoral iliac angiography performed in the area was reprepped. The fertilizing machine operator reviewed the films. Angio-Seal was deployed in the right femoral artery after it was reprepped with ChloraPrep in standard fashion. There was good hemostasis. At this time a large TR band was placed there was bleed back with 15 cc of air and additional 3 cc were required to maintain hemostasis after additional total of 20 cc have been given it was back down to flashback at 17 cc an additional cc making a total of 18 cc were applied. Total contrast exposure 150 cc of omnipaque Total x-ray exposure: 22.2 min fluoroscopy time and 629 mGy air Kerma Findings: 1. EF not assessed for contrast conservation 2. Hemodynamics LV: 115/14 EDP:19 Ao:110/68 3. Left main: Angiographically normal 4: Left anterior descending artery: Previously deployed stents are widely patent. There is a focal high-grade ostial stenosis in the previously placed stents involving the ostium of the first diagonal this is a large vessel. I will review the old films to clarify that this is new. 5: Left circumflex artery: This is a large dominant vessel is free of any significant stenosis 6: Right coronary artery: Is a nondominant vessel is very small Assessment: 1. Ostial first diagonal stenosis as described above 2. Widely patent previously deployed LAD stents Plan: 1. Therapeutic lifestyle changes. 2. Assess aortic root 3. Transthoracic echocardiogram to assess except extravasation of contrast as described above the patient is hemodynamically stable. 4. Consider options for treatment of ostial first obtuse marginal lesion Implants: Angio-Seal closure device right femoral arteriotomy Anesthesia: moderate conscious sedation Surgeon / Physician: Harper Noyola Legal Collector: none Estimated blood loss: minimal Specimens: none sent Condition: stable Disposition: floor - Medications / Follow-up
[2016-04-05] MEDS: SODIUM CHLORIDE 0.45% 1,000 ML IV SCH ×2 (11:57→17:23)
--- NOTE | 2016-04-05 13:51 | Cardiology Progress Note ---
Assessment and Plan (1) Chest pain Status: Acute Assessment and plan: This is concerning for possible worsening of underlying coronary artery disease. I have discussed risk and benefits of left heart catheterization with the patient. He agrees to proceed with this tomorrow morning. He does not have any known allergies. We will keep him n.p.o. after midnight. I have discussed in detail the particulars of this case and I have examined the patient and reviewed the patient's chart both current and old. I was directly involved in the patient's evaluation and management and I completely agree with Valorie Lopez regarding this patient's evaluation and treatment plan. 04/05: Stable p cath. Eval Ascendig Ao with chest with and without contrast Current Visit: Yes (2) Dyslipidemia Status: Chronic Assessment and plan: We will check lipid panel. Current Visit: Yes (3) CAD (coronary artery disease) Status: Chronic Assessment and plan: Patient is status post NSTEMI September 2014 with LAD stent x 6. Current Visit: No (4) Noncompliance Status: Acute Assessment and plan: Counseled patient on the importance of medication compliance. Current Visit: No (5) Hypertension Status: Chronic Assessment and plan: This is currently well controlled. Home medications have been restarted. Current Visit: No (6) Obesity Status: Chronic Assessment and plan: Counseled patient on the importance of weight loss. Current Visit: No (7) Obstructive sleep apnea Status: Chronic Assessment and plan: Continue current plan of care with CPAP machine. Current Visit: No (8) tobacco abuse Status: Chronic Assessment and plan: Counseled patient on the importance of smoking cessation. Current Visit: No Cardiology - PN: Subj Interval history: The patient is post cardiac catheterization stable and doing well. Complains of pain in his groin and it his wrist site on both of which appear to be stable and without neurovascular issues. He has an enlarged aorta and we will plan a CT scan with and without contrast at some point to review anatomy. Exam (Progress Note) - Constitutional Vitals: Period Temp Pulse Resp BP Sys/Trejo Pulse Ox Last 24 Hr 96.9 F-98.6 F 67-80 16-20 96-135/60-78 95-100 Exam: General:no acute distress. alert and oriented, mood and affect are normal HEENT: no new lesions, sclerae are clear, mouth and pharynx benign Neck: supple, trachea midline, no JVD noted Lungs: no rales ronchi or wheeze is noted. pt comfortable without accesory muscle use to assist with breathing CV: RRR no murmur rub or gallop is noted. Abd: soft and nontender, BSNA, no masses. Ext: no cyanosis, clubbing or edema. Cath sites neurovascular intact. Neuro: grossly intact without focal neurologic deficit. Result/EKG - Labs CBC & BMP: 04/05/16 04:08 04/05/16 04:08 Labs: Laboratory Results - last 24 hr 04/04/16 04/05/16 04/05/16 16:18 04:08 04:08 WBC 8.7 D RBC 4.73 Hgb 14.5 Hct 43.2 MCV 91.3 MCH 31 MCHC 33.6 RDW 12.6 Plt Count 191 D MPV 9.9 Neut % (Auto) 39.3 Lymph % (Auto) 45.0 [place] % (Auto) 7.7 Eos % (Auto) 7.0 Baso % (Auto) 0.8 Neut # (Auto) 3.4 Lymph # (Auto) 3.9 [place] # (Auto) 0.7 Eos # (Auto) 0.6 Baso # (Auto) 0.1 Immature Gran % 0.2 Nucleated RBC % 0.0 Immature Gran # 0.02 Nucleated RBCs # 0.00 Platelet Estimate Normal Hypochromasia 1+ INR 0.9 PT Patient/Control Mix 9.4 Sodium Potassium Chloride Carbon Dioxide Anion Gap BUN Creatinine GFR Calculation BUN/Creatinine Ratio Glucose Calculated Osmolality Calcium Magnesium Triglycerides Cholesterol LDL Cholesterol VLDL Cholesterol HDL Cholesterol Heart Disease Risk Ratio Urine Opiates Screen Negative Ur Barbiturates Screen Negative Ur Phencyclidine Scrn Negative U Amphetamine/Methamph Negative U Benzodiazepines Scrn Negative U Cocaine Metab Screen Negative U Cannabinoids Screen Negative 04/05/16 04/05/16 04:08 04:09 WBC RBC Hgb Hct MCV MCH MCHC RDW Plt Count MPV Neut % (Auto) Lymph % (Auto) [place] % (Auto) Eos % (Auto) Baso % (Auto) Neut # (Auto) Lymph # (Auto) [place] # (Auto) Eos # (Auto) Baso # (Auto) Immature Gran % Nucleated RBC % Immature Gran # Nucleated RBCs # Platelet Estimate Hypochromasia INR PT Patient/Control Mix Sodium 144 Potassium 4.6 Chloride 110 H Carbon Dioxide 22 Anion Gap 16.6 H BUN 13 Creatinine 0.70 GFR Calculation 152 BUN/Creatinine Ratio 18.00 Glucose 88 Calculated Osmolality 284.8 Calcium 8.4 L Magnesium 2.1 Triglycerides 363 H Cholesterol 160 LDL Cholesterol 107.0 VLDL Cholesterol 72.6 HDL Cholesterol 28 L Heart Disease Risk Ratio 5.71 Urine Opiates Screen Ur Barbiturates Screen Ur Phencyclidine Scrn U Amphetamine/Methamph U Benzodiazepines Scrn U Cocaine Metab Screen U Cannabinoids Screen Quality Measures - VTE Contraindication to Pharmacological VTE Prophylaxis: High Risk of Bleeding Specialty Discharge - Follow Up or Referrals
--- NOTE | 2016-04-05 17:01 | ECHO Report ---
Dejuan Wall Exam Date: 04/05/2016 15:30 Referring Physician: Technologist: Bri RUIZ Age: 30 Ht (in): Wt (lb): Gender: M Exam Location: [facility] Echo Indications: HTN, dyslipidemia, chest pain, NSTEMI BP: / HR: Rhythm: Sinus Technical Quality: Limited IMPRESSIONS Left ventricular ejection fraction is estimated at 55-60 %. Normal diastolic parameters. No pericardial effusion. Limited study MEASUREMENTS (Male / Female) Normal Values 2D ECHO LV Diastolic Diameter PLAX 5.0 cm 4.2 - 5.9 / 3.9 - 5.3 cm LV Systolic Diameter PLAX 3.4 cm LV Fractional Shortening PLAX 31.8 % IVS Diastolic Thickness 1.3 cm 0.6 - 1.0 / 0.6 - 0.9 cm LVPW Diastolic Thickness 1.6 cm 0.6 - 1.0 / 0.6 - 0.9 cm RV Internal Dim ED PLAX 1.8 cm Aortic Root Diameter 2.7 cm LA Systolic Diameter LX 3.5 cm 3.0 - 4.0 / 2.7 - 3.8 cm FINDINGS Left Ventricle Moderate concentric left ventricular hypertrophy. Left ventricular ejection fraction is estimated at 55-60 %. Normal diastolic parameters. Right Ventricle Normal right ventricular size. Right Atrium Normal right atrial size. Left Atrium Normal left atrial size. Mitral Valve Mildly thickened mitral valve with mild mitral regurgitation. Aortic Valve Aortic valve sclerosis without stenosis or regurgitation. Tricuspid Valve Morphologically normal tricuspid valve. Pulmonic Valve Morphologically normal pulmonic valve. Pericardium No pericardial effusion. Aorta Normal size aortic root and proximal ascending aorta. Harper Noyola (Electronically Signed) Final Date: 05 April 2016 16:59
[2016-04-05] MEDS ORDERED: TICAGRELOR 90 MG TABLET PO SCH (21:00)
[2016-04-06] MEDS: SODIUM CHLORIDE 0.45% 1,000 ML IV SCH ×2 (02:07→10:56)
[2016-04-06 06:53] LABS: Basophils # 0.1 10*3/uL (0.0-0.2); Basophils % 0.7 % (0.0-0.8); Eosinophils # 0.5 10*3/uL (0.0-0.87); Eosinophils % 4.6 % (0.00-10.9); Hematocrit 43.2 VOL% (42.0-52.0); Hemoglobin 14.4 GM/DL (14.0-18.0); Immature Granulocytes % 0.4 %; Immature Granulocytes Absolute 0.04 #; Lymphocytes # 3.5 10*3/uL (1.4-4.0); Lymphocytes % 34.6 % (21.2-54.2); Mean Corpuscular HGB Conc 33.3 GM/DL (32-36); Mean Corpuscular Hemoglobin 31 PG (27-34); Mean Corpuscular Volume 92.1 FL (87-102); Mean Platelet Volume 8.8 FL (9.6-12.0); Monocytes # 0.7 10*3/uL (0.11-0.8); Neutrophils # 5.3 10*3/uL (1.4-7.4); Neutrophils % 52.7 % (38.7-73.9); Platelet Count 237 T/CUMM (130-400); Red Blood Count 4.69 MC/CUMM (3.8-5.5); Red Cell Distribution Width 12.5 % (9.3-17.3); White Blood Count 10.1 T/CUMM (4-12)
[2016-04-06 07:27] LABS: Potassium 4.8 MMOL/L (3.5-5.1)
--- NOTE | 2016-04-06 09:15 | Event Note ---
The patient's radial artery access site and right femoral artery access site looks good. He states he continues to have significant amount of heartburn. Because of difficulties manipulating catheters in the aorta yesterday and coldly of the large catheters I think we should perform CT of the aorta. This may be contributing to his discomfort. Is very difficult. Heartburn is suspicious does not appear to respond to any therapies. I will add nitrates as well.
[2016-04-06] MEDS: ATORVASTATIN 40 MG TABLET PO SCH (09:16)
[2016-04-06] MEDS: LISINOPRIL 5 MG TABLET PO SCH (09:16)
[2016-04-06] MEDS: ASPIRIN EC 81 MG TABLET PO SCH (09:16)
[2016-04-06] MEDS: PANTOPRAZOLE 40 MG TABLET PO SCH (09:16)
[2016-04-06] MEDS: CARVEDILOL 6.25 MG TABLET PO SCH ×2 (09:16→16:52)
--- NOTE | 2016-04-06 10:45 | CT Report ---
CT angio aorta complete TECHNIQUE: Axial CT images of the Chest, Abdomen and Pelvis were obtained during the arterial phase of contrast injection. 3-D vascular MIPS reconstructions and multiplanar reformats were evaluated. Omnipaque 350, 100 cc was administered intravenously with no immediate complication. Total DLP: 1176 COMPARISON: None available CLINICAL HISTORY: Aortic root dilatation CTA FINDINGS: The ascending aorta is normal caliber. The aortic arch appears unremarkable with no significant atherosclerotic disease. There is a bovine (two-vessel) arch with common origin of the brachiocephalic trunk and left common carotid artery. The visualized proximal common carotid arteries and bilateral vertebral arteries appear patent. The descending thoracic aorta is nonaneurysmal with no significant atherosclerotic disease. Within the abdomen, there is no aneurysmal dilatation or significant atherosclerotic calcification or dissection visualized. The celiac, superior mesenteric arteries are widely patent. Incidentally, the patient has a single left kidney, which is likely congenital and there is a single artery supplying the kidney. Incidentally, there is a retroaortic left renal vein noted The iliac vessels are widely patent with no significant atherosclerotic disease. Visualized common femoral arteries appear widely patent bilaterally. NON--CTA FINDINGS: Lungs are clear. There is no focal consolidation, pneumothorax or pleural effusion. Central airways are patent. No suspicious pulmonary nodules or masses are identified. There is no cardial effusion. Calcific/metallic densities within the left anterior descending artery may be related to prior catheterization/stenting but are not well visualized on this nongated study. There is no mediastinal adenopathy. Thyroid gland is only partially imaged. ABDOMEN: Liver/Gallbladder: No abnormal enhancing lesions. No biliary ductal dilatation. Portal vein is patent. Spleen: No acute findings. Pancreas: No acute findings. Adrenals: Within normal limits in appearance. Kidneys: The right kidney is not visualized and may be congenitally absent. Left kidney enhances as expected with no evidence of stones or obstructive uropathy. Bowel/mesentery: Small bowel is nondilated. The appendix is unremarkable. The colon is within normal limits with a few scattered diverticula noted. There is no free fluid/air within the abdomen. There is no mesenteric adenopathy. Retroperitoneum: No evidence of aortic aneurysm or significant retroperitoneal adenopathy. PELVIS: No free fluid. Bladder appears unremarkable except for a small probable diverticulum in the right posterior aspect. Prostate appears within normal limits. There is no adenopathy in the pelvis. BONES: No acute or suspicious osseous abnormalities. IMPRESSION: 1. No evidence of thoracic or abdominal aortic aneurysm or dissection. No significant atherosclerotic disease or luminal narrowing within the visualized arterial vasculature. 2. A single left kidney is visualized, which is likely a congenital finding. Additionally, this kidney demonstrates a retroaortic renal vein, which can, in rare cases, contribute to renal dysfunction. Because this patient has one kidney, this should likely be followed at yearly intervals with renal function studies and ultrasound. 3. No other acute abnormality within the chest, abdomen or pelvis. 04/06/2016 10:34 AM PROCEDURE INTERPRETED AT [facility] DEPARTMENT OF RADIOLOGY Final Report Signed by: Yuri Yeager
[2016-04-06] MEDS: ISOSORBIDE MONONITRATE 30 MG TABLET PO SCH (10:54)
--- NOTE | 2016-04-06 13:11 | Cardiology Progress Note ---
Ronaldo Gates Vanessa, RN, am scribing for, and in the presence of, Harlan Osuna MD 13:10. Assessment and Plan - Time spent with patient Time spent with patient: Less than 30 minutes (1) Chest pain Status: Acute Assessment and plan: Status post left heart catheterization yesterday. Previously placed LAD stent patent, but high-grade ostial stenosis involving the ostium of the first diagonal branch is present. During right coronary angiography, there was questionable extravasation of contrast. Echocardiogram obtained post cath and revealed normal size aortic root and proximal ascending aorta, preserved LV ejection fraction 55-60%. Current Visit: No (2) History of coronary artery disease Status: Acute Assessment and plan: NSTEMI September 2014 with LAD stent placement. Now post cardiac cath 04/05/16, and previously placed stents are patent. Current Visit: No (3) Dyslipidemia Status: Chronic Assessment and plan: Fasting lipid panel shows triglyceride level of greater than 300. Currently taking Lipitor 40 mg daily. May need to adjust this prior to discharge Current Visit: Yes (4) Hypertension Status: Chronic Assessment and plan: Well controlled at this time. Continue current medication regimen. Current Visit: No (5) Noncompliance Status: Acute Assessment and plan: Reinforced compliance with medication and lifestyle changes. Current Visit: No (6) Obesity Status: Chronic Assessment and plan: Dietary instruction and lifestyle changes reinforced. Current Visit: No Cardiology - PN: Subj Interval history: Awake and alert family member present at bedside. He is without acute distress noted. Denies chest pain or dyspnea at this time, and he states that his heartburn that he experienced earlier is resolved. Eating a [employer] sandwich for lunch without difficulty noted. CT chest obtained earlier without evidence of thoracic or abdominal aortic aneurysm or dissection. No other acute abnormality within the chest, abdomen or pelvis. Regular rate and rhythm without overt ectopy or dysrhythmia noted. Labs reviewed. Electrolytes are within normal limits, and renal function is adequate. 3/: We will schedule a GI evaluation. I have discussed in detail the particulars of this case and I have examined the patient and reviewed the patient's chart both current and old. I was directly involved in the patient's evaluation and management and I completely agree with Kelsey Higgins regarding this patient's evaluation and treatment plan. Exam (Progress Note) - Constitutional Vitals: Period Temp Pulse Resp BP Sys/Trejo Pulse Ox Last 24 Hr 96.5 F-98.6 F 70-81 18-20 96-115/53-68 97-100 Exam: General:no acute distress. alert and oriented, mood and affect are normal HEENT: no new lesions, sclerae are clear, mouth and pharynx benign Neck: supple, trachea midline, no JVD noted Lungs: no rales ronchi or wheeze is noted. pt comfortable without accesory muscle use to assist with breathing CV: RRR no murmur rub or gallop is noted. Abd: soft and nontender, BSNA, no masses. Ext: no cyanosis, clubbing or edema. Cath sites neurovascular intact. Neuro: grossly intact without focal neurologic deficit. Result/EKG - Labs CBC & BMP: 04/06/16 06:45 04/06/16 06:45 Lab Results: I have reviewed the past 24 hour labs Labs: Laboratory Results - last 24 hr 04/06/16 04/06/16 06:45 06:45 WBC 10.1 RBC 4.69 Hgb 14.4 Hct 43.2 MCV 92.1 MCH 31 MCHC 33.3 RDW 12.5 Plt Count 237 D MPV 8.8 L Neut % (Auto) 52.7 Lymph % (Auto) 34.6 [place] % (Auto) 7.0 Eos % (Auto) 4.6 Baso % (Auto) 0.7 Neut # (Auto) 5.3 Lymph # (Auto) 3.5 [place] # (Auto) 0.7 Eos # (Auto) 0.5 Baso # (Auto) 0.1 Immature Gran % 0.4 Nucleated RBC % 0.0 Immature Gran # 0.04 Nucleated RBCs # 0.00 Sodium 143 Potassium 4.8 Chloride 109 H Carbon Dioxide 28 Anion Gap 10.8 BUN 11 Creatinine 0.90 GFR Calculation 137 BUN/Creatinine Ratio 12.00 Glucose 96 Calculated Osmolality 283.0 Calcium 9.0 - Diagnostic Findings Procedure: CT - chest: image reviewed by me, report reviewed by me - EKG EKG results: interpreted by me Quality Measures - VTE Contraindication to Pharmacological VTE Prophylaxis: High Risk of Bleeding Specialty Discharge - Follow Up or Referrals Enrrique Gates Wesley, MD, personally performed the services described in this documentation, ascribed by Kelsey Higgins RN in my presence, and it is both accurate and complete .
--- NOTE | 2016-04-06 14:52 | Gastrointestinal Consult Note ---
<Khadijah Carrillo - Last Filed: 04/06/16 15:21> Assessment and Plan (1) Chest pain Status: Acute Assessment and plan: 3/-Atypical chest pain with associated nausea, no radiation of pain. Hx of NC and stents in past. Hx of GERD, not taking his PPI. No prior endoscopy. Tentatively schedule EGD for tomorrow if okay to proceed with cardiology. Plan and addendum to follow by Dr Dinero. Current Visit: No History of Present Illness Chief complaint: Chest pain History of present illness: Mr. Wall is a 30 year old male who presented to the ER with onset of chest pain. Pt states that three days ago he had an episode of sharp stabbing chest pain with nausea, diaphoresis and SOB. Pt came to the ER for further evaluation. Pt states that he has had chest pain off and on since 2014 when he had his first heart attack and had multiple stents placed. States that the pain he has been experiencing lately is very similar to the pain he had with his first heart attack however at times it is not as severe and more of a pressure sensation. He underwent heart catherization on yesterday and no new findings were noted with stents noted to be patent. Pt states when he has the chest pain it does not seem to be precipitated by any known factors. States the pain will start suddenly, not associated with meals, activity or exertion. The pain will last seconds to minutes at times. He states he can at times tell when it is related to reflux due to it is a different sensation of pressure. He states he has difficulty at times swallowing but not always. Has noticed an increase in belching and bloating lately as well. He denies any melena or hematochezia however states he has had this in the past. Pt denies any weight loss. He has a strong history of cardiac disease and he smokes. He is on Brilinita and is noted to have Protonix on his list but he states he doesnt take this very often. He has had no prior endoscopy in the past. He still has his gallbladder as well. Home Medications Medication Instructions Recorded Confirmed Type Acetaminophen Tab [Tylenol Tab] 325 mg PO Q4H PRN #60 tablet 04/02/16 04/03/16 Rx Alum/Mag/Simeth Max Str Liquid 30 ml PO Q4H PRN #1 bottle 04/02/16 04/03/16 Rx [Mylanta Max Strength Liquid] Aspirin EC Tab 81 mg PO DAILY #30 tablet 04/02/16 04/04/16 Rx Atorvastatin [Lipitor] 40 mg PO DAILY #30 tablet 04/02/16 04/04/16 Rx Carvedilol [Coreg] 6.25 mg PO BID W/MEALS #60 tablet 04/02/16 04/04/16 Rx Lisinopril [Prinivil] 5 mg PO DAILY #30 tablet 04/02/16 04/04/16 Rx Nitroglycerin Sl Tab [Nitrostat] 0.4 mg SL Q5M PRN #60 tablet 04/02/16 04/04/16 Rx Pantoprazole Tab [Protonix Tab] 40 mg PO DAILY #30 tablet 04/02/16 04/04/16 Rx Ticagrelor [Brilinta] 90 mg PO BID #60 tablet 04/02/16 04/04/16 Rx Allergies Allergy/AdvReac Type Severity Reaction Status Date / Time No Known Allergies Allergy Verified 06/09/15 11:07 Medical,Surgical,& Family Hx - Medical History Cardio: History of: Cardiac Dysrhythmia (VTACh), CAD, Hypertension, NC No history of: Aneurysm, Cerebrovascular Disease, Congenital Heart Disease, CHF, Pacemaker, PVD, Valvular Heart Disease, Cardiovascular Problems Psychological: No history of: Anxiety Disorders, ADHD, Behavior Problems, Bipolar Disorder, Depression, Previous Suicide Attempt, Psychiatric/Substance Abuse Tx, Schizophrenia, Violent Behavior, Psychiatric Problems Neurology: No history of: Brain Aneurysm, Cerebral Hemorrhage, Cerebrovascular Accident , Cerebral Palsy, Dementia, Migraine, Multiple Sclerosis, Parkinson's Disease, Peripheral Neuropathy, Seizures, TIA, Vertigo, Neurologocal Cancer HEENT: History of: HEENT Problems (tubes placed in ears as a child) No history of: Ear Problem, Eye Problem, Dental Problems, Glaucoma, Oral Cancer Endocrine: No history of: Adrenal Disease, Diabetes Mellitus (IDDM), Diabetes Mellitus ( NIDDM), Dyslipidemia, Thyroid Disorder, Endocrine Cancer, Endocrine Problems Rheumatology: No history of;: Fibromyalgia, Gout, Myasthenia Gravis, Psoriasis, Rheumatoid Arthritis, Sjogrens, Systemic Lupus Erythematosus, Rheumatological Problems Respiratory: History of: Obstructive Sleep Apnea, Respiratory Problems No history of: Asthma, Bronchitis, COPD, Intubation, Pulmonary Embolism, Pulmonary Hypertension, Pneumonia, Lung Cancer Renal: History of: Renal Problems (Congenital kidney disease (only has one kidney)) No history of: Renal (Kidney) Cancer, Dialysis, Renal Failure Genitourinary: No history of: Bladder Problem, Kidney Stones, Prostate Problems, Recurring Urinary Tract Infections, Genitourinary Cancer, Problems Gastrointestinal: History of: GERD No history of: Bowel Obstruction, Clostridium Difficile, Crohn's Disease, Diverticulitis/ Diverticulosis, Esophageal Varices, Gastrointestinal Bleed, Hemorrhoids, Hematochezia, Hepatitis, Liver Problems, Pancreatitis, Polyps, Ulcerative Colitis, Gastrointestinal Cancer, GI Problems Musculoskeletal: No history of: Amputation, Back/Neck Problems, Degenerative Disk Disease, Herniated Disk, Osteoporosis, Musculoskeletal Cancer, Musculoskeletal Problems Hematology: History of: Bleeding Problems (HEMATOMA POST CATH 09/19) No history of: Anemia, Blood Transfusion Reaction, Clotting Problems, Sickle Cell Disease, Hematologic Cancer, Blood Disorders Reproductive: No histroy: Penile Disorder, Sexually Transmitted Disease, Reproductive Cancer, Reproductive Problems Other: No history of: Anesthesia Reactions, Anaphylaxis, Cancer, Eczema, HIV, Malignant Hyperthermia, MRSA, Vancomycin-Resistant Enterococci, Skin Problems, Miscellaneous Medical Problems - Surgical History Cardiac Surgeries: Sugical HX of: Cardiac Catheterization ([address] VIGIL ON 09/10/14) Patient Denies: Femoral-Popliteal Bypass Graft, Cardiac Surgery, Carotid Endarterectomy, Internal Defibrillator, Vascular Access Devices Thoracic Surgeries: Patient denies;: Kidney (Renal Surgery), Lithotripsy, Nephrectomy, Organ Transplant, Lobectomy Neurologic Surgeries: Patient denies: Brain Aneurysm, Cerebral Hemorrhage, Neurologic Surgery HEENT Surgeries: Patient denies: Carotid Endarterectomy, Eye Surgery, Thyroid Surgery, Tonsilectomy & Adenoidectomy Abdominal Surgeries: Surgical HX of: Hernia Repair (as a child) Patient denies: Abdominal Surgery, Appendectomy, Cholecystectomy, Colonoscopy , Gastric Bypass Surgery, EGD, Splenectomy Reproductive Surgeries: Patient denies;: Breast Surgery, Cystoscopy, Genitourinary Surgery, Prostate Surgery, Vasectomy Orthopedic Surgeries: Patient denies;: Implanted Devices, Orthopedic Surgery, Spinal Surgery, Total Hip Replacement, Total Knee Replacement - Family History Family History: Reports;: Family Cancer (grandfather and great grandfather), Family Diabetes (Dad), Family Heart Disease (Dad myocardial infarction at age 54 ), Family Hypertension (dad), Family Stroke (dad -TIA) Denies;: Family Anesthesia Reaction - Social History Smoking Status: Current every day smoker Frequency of Alcohol Use: None Type of Drug Use: None 12 point system: reviewed and no additional remarkable complaints except as stated - Constitutional Constitutional: Present: as per HPI - EENT Eyes: Present: as per HPI Ears: Present: as per HPI Nose, mouth and throat: Present: as per HPI - Cardiovascular Cardiovascular: Present: as per HPI, chest pain at rest - Respiratory Respiratory: Present: as per HPI - Gastrointestinal Gastrointestinal: Present: as per HPI, bloating, dyspepsia, dysphagia, heartburn - Genitourinary Genitourinary: Present: as per HPI - Musculoskeletal Musculoskeletal: Present: as per HPI - Neurological Neurological: Present: as per HPI - Psychiatric Psychiatric: Present: as per HPI - Endocrine Endocrine: Present: as per HPI - Hematologic/Lymphatic Hematologic/Lymphatic: Present: as per HPI Exam - Constitutional Vitals: Period Temp Pulse Resp BP Sys/Trejo Pulse Ox Last 24 Hr 96.5 F-98.8 F 70-89 18-20 104-113/53-70 97-100 General appearance: no acute distress, over weight - Head Head exam: Present: normal inspection, normocephalic - Eye Eye exam: Present: other (lids and conjunctiva unremarkable). Absent: scleral icterus - ENT ENT exam: Present: normal exam, normal oropharynx - Neck Neck exam: Present: normal inspection - Respiratory Respiratory exam: Present: clear to auscultation bilaterally. Absent: rales, rhonchi, wheezes - Cardiovascular Cardiovascular exam: Present: regular rate and rhythm. Absent: diastolic murmur , JVD, systolic murmur - GI/Abdominal GI/Abdominal exam: Present: normal bowel sounds, soft. Absent: ascites, distended, mass, organomegaly, tenderness - Extremities Exam Extremities exam: Present: normal inspection, full ROM - Back Exam Back exam: Present: normal inspection - Neurological Exam Neurological exam: Present: alert, oriented X3 - Psychiatric Psychiatric exam: Present: normal affect, normal mood - Skin Skin exam: Present: normal color, warm, dry Results - Labs CBC & BMP: 04/06/16 06:45 04/06/16 06:45 Lab Results: I have reviewed the past 24 hour labs Quality Measures - VTE Contraindication to Pharmacological VTE Prophylaxis: High Risk of Bleeding Specialty Discharge - Follow Up or Referrals <Cole Dinero - Last Filed: 04/06/16 17:24> History of Present Illness History of present illness: Mr. Wall is a 30 year old male Exam - Constitutional Vitals: Period Temp Pulse Resp BP Sys/Trejo Pulse Ox Last 24 Hr 96.5 F-99.7 F 70-96 18-18 104-111/53-70 97-98 Results - Labs CBC & BMP: 04/06/16 06:45 04/06/16 06:45
[2016-04-06] MEDS: ACETAMINOPHEN 325 MG TABLET PO PRN ×2 (15:45→15:47)
[2016-04-06] MEDS: MORPHINE 2 MG/1 ML SYRINGE IV PRN (20:52)
[2016-04-07 08:50] LABS: Calcium 8.7 MG/DL (8.5-10.1); Osmolality,Calculated 285.8 MOS/KG (273-304); Potassium 4.5 MMOL/L (3.5-5.1)
[2016-04-07] MEDS ORDERED: LIDOCAINE 2% 5 ML VIAL ONE (11:26)
[2016-04-07] MEDS ORDERED: PROPOFOL 200 MG/20 ML VIAL IV ONE (11:26)
--- NOTE | 2016-04-07 11:46 | History and Physical Update ---
History and Physical Update - Physical Exam Mental Status: alert and oriented Heart: regular rate and rhythm Lung: clear to auscultation Abdomen: within normal limits Vitals: within normal limits
--- NOTE | 2016-04-07 11:48 | Operative Note ---
Date of procedure: 04/07/16 Pre-op diagnosis: atypical chest pain Procedure: EGD 30-year-old gentleman with history of significant cardiac disease now with atypical chest pain for upper endoscopy to further evaluate. Informed consent was obtained. From the patient. He was sedated with Mac anesthesia per anesthesia protocol. Patient placed in left lateral decubitus position the Olympus flexible video upper endoscope was inserted oral cavity under direct vision the esophagus was intubated. Findings esophagus-normal proximal mid esophageal mucosa distal esophagus with small hiatal hernia no significant esophagitis was seen. Stomach-normal insufflation there is acute antral gastritis. No biopsy was taken secondary to anticoagulant therapy. No ulcers were seen to direct retroflex views of the body fundus cardia or antrum of the stomach. Pylorus-normal Duodenum-acute bulbar duodenitis no ulcers. Procedure terminated patient our procedure well his discharge recovery in good condition. Postop diagnosis: #1 acute antral gastritis-continue PPI treatment and avoid nonsteroidals #2 acute bulbar duodenitis-as above. #3 check stool for H. pylori antigen and if positive will need treatment. I will see the patient on Sunday call coverage if needed over the weekend. Anesthesia: MAC Surgeon / Physician: Cole Dinero Estimated blood loss: none Specimens: none sent Condition: stable Disposition: post procedure unit Results - Labs CBC & BMP: 04/06/16 06:45 04/07/16 08:01 Discharge Plan - Discharge Medications No Action Acetaminophen Tab [Tylenol Tab] 325 mg PO Q4H PRN #60 tablet PRN Reason: fever, headache/body aches Pantoprazole Tab [Protonix Tab] 40 mg PO DAILY #30 tablet Nitroglycerin Sl Tab [Nitrostat] 0.4 mg SL Q5M PRN #60 tablet PRN Reason: Chest Pain Alum/Mag/Simeth Max Str Liquid [Mylanta Max Strength Liquid] 30 ml PO Q4H PRN #1 bottle PRN Reason: Dyspepsia Aspirin EC Tab 81 mg PO DAILY #30 tablet Atorvastatin [Lipitor] 40 mg PO DAILY #30 tablet Carvedilol [Coreg] 6.25 mg PO BID W/MEALS #60 tablet Lisinopril [Prinivil] 5 mg PO DAILY #30 tablet Ticagrelor [Brilinta] 90 mg PO BID #60 tablet - Follow Up or Referral - Forms/Instructions Instructions: Coronary Artery Disease (GEN), Left Heart Catheterization (DC), Heart Healthy Diet (GEN), Jorge Post Cardiac Catheterization Instructions - Radial Artery
--- NOTE | 2016-04-07 11:50 | Anesthesia ---
Anesthesia Post OP - Post Ansesthetic Evaluation Patient seen in post op: Yes Resp: within normal limits CV: within normal limits Mental: within normal limits Temp: within normal limits [id number]: within normal limits Nausea and Vomiting: within normal limits Pain: within normal limits
[2016-04-07 12:18] VITALS: BP 105/073
[2016-04-07] MEDS: ASPIRIN EC 81 MG TABLET PO SCH (13:39)
[2016-04-07] MEDS: LISINOPRIL 5 MG TABLET PO SCH (13:39)
[2016-04-07] MEDS: PANTOPRAZOLE 40 MG TABLET PO SCH (13:40)
[2016-04-07] MEDS: CARVEDILOL 6.25 MG TABLET PO SCH (13:40)
[2016-04-07] MEDS: ATORVASTATIN 40 MG TABLET PO SCH (13:40)
[2016-04-07] MEDS: ISOSORBIDE MONONITRATE 30 MG TABLET PO SCH (13:40)
--- NOTE | 2016-04-07 14:22 | Discharge Summary ---
John Gates Rachel, RN, am scribing for, and in the presence of, Harlan Osuna MD 14:21. Hospital Course - Hospital Course Hospital Course: Mr. Wall is a 30 year old male with known coronary artery disease, routinely followed by Dr. Ramirez. Presented to the ER for further evaluation of chest pain. He has risk factors significant for known coronary artery disease, hypertension, dyslipidemia, obesity, current everyday smoker (one half a pack a day) and family history of premature heart disease. He has a history of LAD myocardial infarction, obstructive sleep apnea and ischemic cardiomyopathy ( with improved ejection fraction with no CHF symptoms). Patient has had 2 cardiac catheterizations. Patient is status post NSTEMI September 2014 with LAD stent x 6. He had recurrent chest pain June 2015 and underwent left heart cath. At that time his LAD stents were widely patent. The dominant circumflex and right coronary artery were also patent. Ejection fraction was noted to be 40-45 % at that time. Patient presented to [facility] with recurrent chest pain. His troponin was negative 3 checks and his EKG did not reveal any acute findings and is unchanged from previous EKG. He is status post cardiac catheterization 04/05/16. Previously placed LAD stents patent, but high-grade ostial stenosis involving the ostium of the first diagonal branch is present. During right coronary angiography, there was questionable extravasation of contrast. Echocardiogram obtained post cath and revealed normal size aortic root and proximal ascending aorta, preserved LV ejection fraction 55-60%. CT chest was obtained and was without evidence of thoracic or abdominal aortic aneurysm or dissection. No other acute abnormality within the chest, abdomen or pelvis was noted. Plan to medically treat ostial first obtuse marginal lesion and encourage lifestyle changes. Post cath, patient had compliants of heartburn after meals. GI was consulted to further evaluate patient's symptoms. Patient underwent EDG this morning, gastritis and duodenitis was noted. Stool was checked for H. Pylori antigen and if positive, patient will need appropriate treatment. GI recommends to continue PPI treatment and avoid nonsteriodals. Having felt he has met maximal benefit of hospitalization, he will be discharged home in stable condition. Smoking cessation was advised. Patient did well post heart catheterization and was without complications. Right groin is soft and without bleeding, bruit and hematoma. Distal pulses are 2+. He has ambulated around the room and allison this morning without complications. He denies chest pain, shortness of breath and palpitations. I have discussed with his the importance of medication compliance. He verbalizes understanding of this. He has been given a follow up appointment with Dr. Ramirez in 1-2 weeks with JAJA RENEE and magnesium. Patient verbalizes that he understands discharge instructions. He also verbalized understanding of all discharge medications. He will go home on the following medications: Protonix 40 mg twice daily Lisinopril 5 mg p.o. daily Coreg 6.25 mg p.o. twice daily Lipitor 40 mg daily Aspirin 81 mg daily Imdur 30 mg daily I have discussed in detail the particulars of this case and I have examined the patient and reviewed the patient's chart both current and old. I was directly involved in the patient's evaluation and management and I completely agree with Valorie Lopez RN regarding this patient's evaluation and treatment plan. - Time spent with patient Time with patient DS: Greater than 30 minutes Diagnosis - Discharge Diagnosis (1) Chest pain Status: Resolved (2) Dyslipidemia Status: Chronic (3) CAD (coronary artery disease) Status: Chronic (4) Noncompliance Status: Resolved (5) Hypertension Status: Chronic (6) Obesity Status: Chronic (7) Obstructive sleep apnea Status: Chronic (8) tobacco abuse Status: Chronic (9) Gastritis and duodenitis Status: Acute Specialty Discharge - Follow Up or Referrals Follow up with: Bar Ramirez MD [Physician] - (Appointment with Dr. Ramirez in 1-2 weeks with JAJA RENEE and magnesium.) Discharge Plan - Discharge Data Disposition: Disch To Home/Self Care Condition at Discharge: Stable Discharge Diet: heart healthy Activity: as per the cardiac rehab, no lifting, no prolonged standing Hygiene: may shower Weight Bearing at Discharge: other (Post cath expectations) Driving: other (Post cath expectations) Contact your physician if you experience:: fever over 101, Difficulty voiding, Redness or swelling, Nausea/Vomiting, Shortness of breath, Bleeding, pain uncontrolled by pain medications - Discharge Medications New Isosorbide Mononitrate [Imdur] 30 mg PO DAILY #30 tablet Continue Carvedilol [Coreg] 6.25 mg PO BID W/MEALS #60 tablet Lisinopril [Prinivil] 5 mg PO DAILY #30 tablet Nitroglycerin Sl Tab [Nitrostat] 0.4 mg SL Q5M PRN #1 bottle PRN Reason: Chest Pain Alum/Mag/Simeth Max Str Liquid [Mylanta Max Strength Liquid] 30 ml PO Q4H PRN #1 bottle PRN Reason: Dyspepsia Aspirin EC Tab 81 mg PO DAILY #30 tablet Atorvastatin [Lipitor] 40 mg PO DAILY #30 tablet Changed Pantoprazole Tab [Protonix Tab] 40 mg PO BID #60 tablet Discontinued Acetaminophen Tab [Tylenol Tab] 325 mg PO Q4H PRN #60 tablet PRN Reason: fever, headache/body aches Ticagrelor [Brilinta] 90 mg PO BID #60 tablet - Follow Up or Referral Follow Up: Bar Ramirez MD [Physician] - (Appointment with Dr. Ramirez in 1-2 weeks with CBC, BMP and magnesium.) - Forms/Instructions Instructions: Coronary Artery Disease (GEN), Left Heart Catheterization (DC), Heart Healthy Diet (GEN), Jorge Post Cardiac Catheterization Instructions - Radial Artery Exam - Constitutional Vitals: Period Temp Pulse Resp BP Sys/Trejo Pulse Ox Last 24 Hr 96.8 F-99.7 F 65-97 16-18 95-148/53-073 94-99 General appearance: no acute distress, over weight - Head Head exam: Present: normal inspection, normocephalic, atraumatic - Neck Neck exam: Present: normal inspection. Absent: lymphadenopathy, tenderness, thyromegaly - Respiratory Respiratory exam: Present: clear to auscultation bilaterally. Absent: accessory muscle use, chest wall tenderness, rales, rhonchi, stridor, wheezes - Cardiovascular Cardiovascular exam: Present: regular rate and rhythm. Absent: carotid bruit, gallop, rubs, systolic murmur - GI/Abdominal GI/Abdominal exam: Present: normal bowel sounds, soft. Absent: distended, firm , mass, tenderness - Extremities Exam Extremities exam: Present: normal inspection, other (Right groin stable without bleeding hematoma and bruit. Distal pulses 2+.). Absent: normal capillary refill, calf tenderness, edema - Neurological Exam Neurological exam: Present: alert, oriented X3, normal gait - Psychiatric Psychiatric exam: Present: normal affect, normal mood. Absent: agitated, anxious, depressed - Skin Skin exam: Present: normal color, warm, dry. Absent: cyanosis Discharge Results Procedures and tests throughout hospitalization: Pending Orders 04/07/16 11:48 Helicobacter pylori Ag Feces Routine Labs on day of discharge: Labs from last 24 hours 04/07/16 08:01 Sodium 144 Potassium 4.5 Chloride 109 H Carbon Dioxide 26 Anion Gap 13.5 BUN 12 Creatinine 0.90 GFR Calculation 138 BUN/Creatinine Ratio 13.00 Glucose 91 Calculated Osmolality 285.8 Calcium 8.7 - Imaging and Cardiology Cardiology Procedure: report reviewed by me Procedure: Chest x-ray: report reviewed by me, CT: report reviewed by me DS: Provider Consults: 04/05/16 11:25 Consult to Cardiac Rehabilitation [CONS] Routine Reason for Cardiac Rehabilitation: Risk Factor Modification 04/06/16 13:14 Consult to Physician [CONS] Routine Comment: Evaluate for GI etiology of chest pain Consulting Provider: Cole Dinero Consult to Specialist Group: Gastroenterology Consult Notification Comment: TEXTED CONSULT TO [facility] AT [address] DINERO Expected date of discharge: 04/07/16 Enrrique Gates Wesley, MD, personally performed the services described in this documentation, ascribed by Valorie Lopez RN in my presence, and it is both accurate and complete [id number] .
== END 2016-04-07 14:57 | disposition home or self-care (01) ==
LOC: N.ED 15:32 → N.EDINP 15:32 → N.TELES 04-04 13:27
PROVIDERS: ADMIT Internal Medicine Cardiovascular Disease; ATTEND Internal Medicine Cardiovascular Disease
PROC: CLCCHCL (ICD-10-PCS; 2016-04-05 11:15)